=== PATIENT | female | born 1940 | race Caucasian/White ===

== ENCOUNTER 2016-12-18 10:29 | Inpatient (IN) | payer OTHER, MEDICARE ==
[~2016-12-18] VITALS: Ht 162.6 cm; Wt 76.9 kg
[~2016-12-18 10:29] MED LIST: ACETAMINOPHEN/O1 TA3 PO; AMB5 PO; AMBIEN10 MG PO; BACO TOP; BACTROBAN21; CLEOCIN HCL300 MG PO; CLONAZEPAM1 MG PO; COL100 PO; COLACE100 MG PO; CYMBALTA30 M1 PO; DILAUDID2 MG PO; ECO81 PO; FERROUS SULFAT325 M2 PO; FLEXERIL10 MG PO; GABAPENTIN100 M2 PO; GLU5 PO; GLU500 PO; GOOD SENSE ASPI81 M3 PO; HIBICLENS118 ML TOP; HIBICLENS118 ML TP; KLONOPIN1 MG PO; LAC PO; LEVAQUIN750 MG PO; MAC100 PO; METFORMIN HCL1000 MG PO; METFORMIN HCL500 MG PO; MORPHINE SULFAT30 M2 PO; NEU100 PO; NEURONTIN600 MG PO; PRI20 PO; PYRIDOXINE HCL50 MG PO; RXMED PO; THERAGRAN-M1 TA4 PO; ZES10 PO; ZOC10 PO; ZOF4 PO
--- NOTE | 2016-12-18 12:32 | NUR ---
PT BIB [facility] FOR C/O BACK PAIN. PT ACCOMPANIED BY DAUGHTER AND REPORTS PT FELL X2 RECENTLY ON 12/11 AND 12/13. PT REPORTS FALLING ONTO BUTTOCKS BOTH TIMES, DENIES HITTING HEAD, DENIES ANY LOC. PT IS AAOX4, RESP EVEN AND UNLABORED, REPORTING 9/10 PAIN. PT STS THAT HER DILAUDID IS NOT WORKING FOR HER CHRONIC PAIN
--- NOTE | 2016-12-18 12:34 | NUR ---
DR TELLES AT BEDSIDE FOR MSE
--- NOTE | 2016-12-18 12:51 | NUR ---
TRIAGE ASSISTANT AT BEDSIDE FOR BLOOD DRAW AND CULTURES
--- NOTE | 2016-12-18 13:00 | NUR ---
EKG IN PROGRESS
[2016-12-18 13:10] LABS: BASOPHIL % 0.4 % (0-2); PLATELET COUNT 259 x10^3mcL (130-400)
[2016-12-18 13:12] LABS: RED CELL DISTRIBUTION WIDTH 15.5 % (11.5-14.5)
[2016-12-18 13:17] LABS: CALCIUM 9.1 mg/dL (8.5-10.1); CARBON DIOXIDE 33.3 mmol/L (21-32); CHLORIDE SERUM 102 mmol/L (98-107); GLUCOSE SERUM 148 mg/dL (74-106); POTASSIUM SERUM 4.1 mmol/L (3.5-5.1); SODIUM SERUM 142 mmol/L (136-145)
[2016-12-18 13:22] LABS: ALKALINE PHOSPHATASE 95 U/L (46-116); ALT/SGPT 20 U/L (14-59); AST/SGOT 16 U/L (15-37); BILIRUBIN TOTAL 0.4 mg/dL (0.20-1.00); TOTAL PROTEIN, SERUM 7.7 g/dL (6.4-8.2)
[2016-12-18 13:24] LABS: ALBUMIN 3.2 g/dL (3.4-5.0)
--- NOTE | 2016-12-18 14:40 | NUR ---
PT REQUESTING GRAMAJO CATH. DR KOKI GILL. INSERTED BY LACEY ESCAMILLA WITH STERILE TECHNIQUE. URINE SPECIMEN COLLECTED AND SENT TO LAB
[2016-12-18] MEDS ORDERED: BACLOFEN10 MG PO (14:54)
[2016-12-18] MEDS ORDERED: DILAUDID4 MG PO (14:54)
[2016-12-18] MEDS ORDERED: METFORMIN HCL1000 MG PO (14:55)
[2016-12-18] MEDS ORDERED: DIGOXIN0.125 M1 PO (14:55)
[2016-12-18] MEDS ORDERED: COUMADIN5 MG PO (14:55)
--- NOTE | 2016-12-18 14:55 | NUR ---
MED REC UPDATED WITH PT RX BOTTLES
--- NOTE | 2016-12-18 15:24 | NUR ---
MED STUDENT SAI AT BEDSIDE SPEAKING WITH PT
[2016-12-18 15:27] LABS: UA SPECIFIC GRAVITY <=1.005 (1.005-1.035); microscopic required? YES; urine erythrocyte TRACE (NEGATIVE)
--- NOTE | 2016-12-18 15:36 | NUR ---
REPORT GIVEN TO RAH BURROWS RN FOR ANGELLA ESCAMILLA IN [facility] FOR CONTINUITY OF CARE. 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
[2016-12-18 16:33] LABS: CHOLESTEROL/HDL RATIO 4.9
[2016-12-18 16:42] LABS: T3 TOTAL 1.09 ng/mL
[2016-12-18 16:49] LABS: FREE T4 1.26 ng/dL (0.76-1.46); FREE THYROXINE INDEX 2.8 ug/dL (1.4-4.5); T4(THYROXINE) 8.6 ug/dL (4.7-13.3)
[2016-12-18 17:17] VITALS: BP 148/78
--- NOTE | 2016-12-18 17:29 | NUR ---
REC'D AOX4, SPEECH CLEAR. C/O LEG AND BACK PAIN. ATTACHED TELE 17 SHOWING AFIB. DENIES CHEST PAIN. ON 2L VIA NC, NO SOB NOTED. DAUGHTER AT THE BEDSIDE. PT AMBULATES WITH WALKER AND W/C AT HOME. PT STATES LEFT DENTURES AT HOME. IV SITE WNL. ORIENTED PT AND DAUGHTER TO ROOM AND SURROUNDINGS. CALL LIGHT WITHIN REACH, PROVIDED REPORT TO ANGELLA ESCAMILLA
--- NOTE | 2016-12-18 18:00 | NUR ---
INFORMED ABOUT DIG LEVEL 0.50.HE SAID HE WILL DIGOXIN PO.ALSO INFORMED HIM PT IS VERY ANXIOUS AND SHE DOESNOT WANT ATIVAN.HE SAID HE WILL TALK TO THE PT AND FAMILY.
--- NOTE | 2016-12-18 19:00 | NUR ---
PT IS STABLE,LYING IN THE BED.PT SAID DILAUID HELPED HER WITH PAIN. GAVE REPORT TO NEXT SHIFT NURSE.
--- NOTE | 2016-12-18 19:50 | NUR ---
RECEIVED Pt AAOX4 VERY ANXIOUS, TEARFUL AND DEMANDING ALL HER PAIN AND ANXIETY MEDICATIONS NASREEN. DAUGHTER YURIY IS AT BEDSIDE. DENIES ANY CHEST PAIN. TELE MONITOR READS A-FIB HR 84, B/P 141/69. PULSE OX IS 96% ON ROOM AIR. ACTIVE BOWEL SOUNDS X4 QUADS. DENIES ANY ABD DISCOMFORT. ECCHYMOSIS NOTED TO MARTINA/STEAM CONDITIONER OPERATOR. IV SITE TO LAC IS PATENT. GRAMAJO CATH IN PLACE. RADIAL AND PEDAL PULSES PRESENT. C/O RIGHT KNEE PAIN AT 4/10, K-PAD APPLIED TO KNEE ORDERED. RE-ORIENTED TO ROOM, CALL LIGHT SYSTEM AND POC. WILL CONTINUE TO MONITOR.
--- NOTE | 2016-12-19 02:58 | NUR ---
Pt RESTING QUIETLY. CALL LIGHT WITHIN REACH. WILL CONTINUE TO MONITOR.
[2016-12-19 05:06] VITALS: BP 152/68
--- NOTE | 2016-12-19 05:11 | NUR ---
Pt C/O SHARP PAIN TO LOWER BACK AND KNEES AT 10/10, Pt MEDICATED WITH DILAUDID IV, REQUESTING GABAPENTIN, MADE AWARE IT IS NOT DUE YEAT. CLONOPIN PO GIVEN WELL FOR ANXIETY. WILL CONTINUE TO MONITOR.
--- NOTE | 2016-12-19 05:13 | NUR ---
Pt REMAIN QUIET DURING THE NIGHT AFTER BEING MEDICATED FOR PAIN AND ANXIETY. GRAMAJO CATH PATENT WITH 2000 ML OF URINE, NO BM. Pt CURRENTLY AWAKE C/O PAIN TO LOWER BACK AND KNEES. SAFETY AND COMFORT MEASURES REMAIN IN PLACE. WILL CONTINUE TO MONITOR.
[2016-12-19 06:07] LABS: PLATELET COUNT 270 x10^3mcL (130-400)
[2016-12-19 06:27] LABS: CALCIUM 8.8 mg/dL (8.5-10.1); CARBON DIOXIDE 28.7 mmol/L (21-32); CHLORIDE SERUM 109 mmol/L (98-107); CREATININE SERUM 0.8 mg/dL (0.6-1.0); GLUCOSE SERUM 133 mg/dL (74-106); MAGNESIUM 2.4 mg/dL (1.8-2.4); PHOSPHOROUS 3.4 mg/dL (2.5-4.9); POTASSIUM SERUM 4.2 mmol/L (3.5-5.1); SODIUM SERUM 146 mmol/L (136-145)
[2016-12-19 06:36] LABS: RED CELL DISTRIBUTION WIDTH 14.6 % (11.5-14.5)
--- NOTE | 2016-12-19 07:15 | NUR ---
RECEIVED PT. IN BED A/A/O X3. NO SOB, NO N/V NOTED. C/O CONSTANT PAIN AT BACK AND BLE. NS RUNNING AT 50 CC/HR. VIA IV H/L AT L AC. F/C DRAINING YELLOW URINE. SCD TO BLE MAINTAINED. PT. IS ON CONTACT ISOLATION FOR HX. 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 BED IN LOW POS., CALL LIGHT WITHIN REACH. SIDE RAILS UP X3. K-PAD TO BACK AREA MAINTAINED.
--- NOTE | 2016-12-19 08:00 | NUR ---
DR. GREEN, THE RESIDENTS, CHARGE NURSE, AND ATTENDING NURSE AT BEDSIDE. CAREPLAN DISCUSSED WITH PT. ALL QUESTIONS ANSWERED.
[2016-12-19 09:17] VITALS: BP 143/81
--- NOTE | 2016-12-19 10:22 | NUR ---
ECHO PENDING PT UNABLE TO LYE ON LT SIDE OR BACK AT THIS TIME DUE TO SEVERE PAIN.
[2016-12-19 13:49] VITALS: BP 139/79
--- NOTE | 2016-12-19 13:51 | NUR ---
P.T. NOTES PATIENT CLEARED PER RN FOR PT EVAL. CONTACT ISOLATION PRECAUTIONS OBSERVED. Pt LIVES IN APARTMENT, ONE LEVEL, WITH ADULT DAUGHTER WHO ASSISTS HER WITH ADLs. Pt AMBU W/FWW, ADMITS TO H/O RECENT FALLS X 2 IN LAST FEW WEEKS. PLEASE SEE IMAGING RESULTS AND EXTENSIVE MED Hx. S: Pt PRESENTS AWAKE, ALERT AND AGREEABLE FOR PT EVAL. NOTED 4/10 LBP DESPITE PAIN MEDS PROVIDED PER RN. DAUGHTER IN ROOM. O: PLEASE SEE EVAL FOR DETAILS. Pt REQUIRES MIN A FOR BED MOB AND TRANSFERS AND MIN/MOD A FOR GT WITH FWW FOR 35 FT IN ROOM. ASSIST NEEDED W/SAFE DIRECTIONAL CHANGES AND NEGOTIATING OBSTACLES IN ROOM. Pt EDU ON SAFETY, PROPER POSITIONING AND POSTURAL EDU FOR SPINAL ALIGNMENT W/GOOD LEARNING EXPRESSED. Pt W/FAIR AFFECT AND GETS TEARFUL AT TIME WHEN TALKING. Pt SAFELY ASSISTED BTB WITH ALL LINES INTACT, CALL LIGHT AND TRAY IN REACH, HOB ELEVATED, CALL LIGHT AND TRAY IN REACH. Pt AND DAUGHTER COOPERATIVE AND APPRECIATIVE OF PT CARE. VS: BP 140/69, HR 93BPM, SP02 97% ON RA. A: Pt TOLERATED PT WELL. FALL RISK D/T DECLINE IN FUNCTION AND GENERALIZED LE WEAKNESS. R GENU RECURVATUM W/FIXED KNEE JOINT IN EXTENSION. DEMO'S IMPAIRED BALANCE, SLOW DEN, LIMITED ENDURANCE WITH GT. PATIENT WILL BENEFIT FROM PT DURING ACUTE AND POST ACUTE STAY, HHPT VS SNF. P: POC REVIEWED WITH BULB PACKER. PLEASE SEE PATIENT ONCE DAILY, 5X/WK,1 WEEK. EVAL 45' (2) PVE FOR SECOND PERSON SBA, SAFETY [id number] [id number]; [id number]; TUG 14 SEC Pt PROVIDED W/TRANSFER TRAINING ACTIVITIES, SUP<>SIT AND SIT<>STAND W/FWW USE. ALSO EDU ON LOG ROLL W/GOOD RETURN. TA 10' [phone]
--- NOTE | 2016-12-19 15:36 | NUR ---
CALLED AND REPORTED MRSA SCREENING RESULT (POSITIVE FOR MRSA NARES) TO DR. WEISS (DO PATENTED HOGSHEAD ASSEMBLER). ORDERS FOR HIBICLENS AND BACTROBAN RECEIVED. CONTACT ISOLATION MAINTAINED.
--- NOTE | 2016-12-19 16:44 | NUR ---
C/O FEELING ANXIOUS; KLONOPIN 1MG PO GIVEN.
--- NOTE | 2016-12-19 17:46 | NUR ---
REMAINS IN STABLE CONDITION AT THIS TIME. NO ACUTE DISTRESS NOTED.
[2016-12-19 17:58] VITALS: BP 103/76
--- NOTE | 2016-12-19 19:30 | NUR ---
PATIENT RECEIVED AWAKE, ALERT, AND ORIENTED X 4. NO DISTRESS NOTED. PATIENT C/O BACK AND BLE PAIN 6/10 TOLERABLE AT THIS TIME. IV SITE TO LEFT AC, PATENT AND INTACT. IV FLUID INFUSING PER DOCTOR'S ORDER. BED IN LOWEST POSITION. KPAD IN PLACE. CALL LIGHT WITHIN REACH. WILL CONTINUE TO MONITOR.
[2016-12-19 22:44] VITALS: BP 122/73
--- NOTE | 2016-12-20 05:02 | NUR ---
PATIENT RESTED THROUGHOUT THE NIGHT. MEDICATED FOR BACK/BLE PAIN WITH DILAUDID IVP X 1 PER DOCTOR'S PRN ORDER. PAIN MANAGED THROUGHOUT THE NIGHT. ALL NEEDS MET. SAFETY AND COMFORT MEASURES MAINTAINED. BED IN LOWEST POSITION. CALL LIGHT WITHIN REACH. WILL CONTINUE TO MONITOR AND ENDORSE TO NEXT SHIFT NURSE.
[2016-12-20 05:43] VITALS: BP 137/73
[2016-12-20 06:05] LABS: BASOPHIL % 0.2 % (0-2); PLATELET COUNT 243 x10^3mcL (130-400)
[2016-12-20 06:24] LABS: CALCIUM 8.3 mg/dL (8.5-10.1); CARBON DIOXIDE 25.5 mmol/L (21-32); CHLORIDE SERUM 109 mmol/L (98-107); CREATININE SERUM 0.9 mg/dL (0.6-1.0); GLUCOSE SERUM 159 mg/dL (74-106); PHOSPHOROUS 2.2 mg/dL (2.5-4.9); POTASSIUM SERUM 3.8 mmol/L (3.5-5.1); SODIUM SERUM 145 mmol/L (136-145)
[2016-12-20 06:51] LABS: RED CELL DISTRIBUTION WIDTH 15.7 % (11.5-14.5)
--- NOTE | 2016-12-20 07:05 | NUR ---
RECIVED REPORT FROM CIRILO ESCAMILLA AT BEDSIDE. PT IS AOX4 ABLE TO FOLLOW VERBAL COMMANDS. FOUND ON RA NO SIGNS OF SOB OR ACUTE DISTRESS. NS INFUSING 50 NL/HR TO LAC. IV SITE WNL. CONTACT ISOLATION PRECAUTION IS IMPLEMENTED. PT IS CALM AT THIS TIME. BED AT LOW AND CALL LIGHT WITHIN REACH.
--- NOTE | 2016-12-20 08:18 | NUR ---
PT C/O HIP PAIN 06/08, WILL MEDICATE PER EMAR.
--- NOTE | 2016-12-20 08:20 | NUR ---
ATTENDING DR. MACK IS AT BEDSIDE TO DISCUSS PLAN OF CARE FOR THE DAY.
--- NOTE | 2016-12-20 08:25 | NUR ---
DR. WEISS IS AWARE OF WBC 14.2, DIGOXIN 0.5 AND PHOS 2.2. AWAITING FOR NEW ORDERS.
[2016-12-20 09:12] VITALS: BP 140/75
--- NOTE | 2016-12-20 10:05 | NUR ---
PT C/O LOWER BACK PAIN 06/08, WILL MEDICATE PER EMAR.
--- NOTE | 2016-12-20 10:07 | NUR ---
DR. WEISS IS MADE AWARE OF E.COLI AND MDRO IN URINE. AWAITING FOR NEW ORDERS.
--- NOTE | 2016-12-20 15:11 | NUR ---
PT NOTES TIME [id number] S: CLEARED BY RN FOR P.T. TX. PATIENT IS AWAKE & ALERT IN A SEMI ONTIVEROS POSITION IN BED. AGREEABLE TO P.T. TX. C/O LOW BACK & L KNEE PAIN 04/07. PATIENT HAS BEEN MEDICATED FOR PAIN BY RN PRIOR TO TX. O: VITALS AT REST BP 125/76, HR 86 BPM, SPO2 ON RA 98% BED MOBILITY: SUPINE<>SIT W/ MIN ASSIST. SCOOTING TO EOB W/ CGA. PATIENT IS SLOW IN TASK FACILITATION. PATIENT USES BED RAILINGS TO ASSIST W/ BED MOBILITY. WHILE SEATED AT EOB PATIENT INITIALLY RETROLEANS, BUT W/ VC & USE OF BED RAIL PATIENT ABLE TO CORRECT SITTING BALANCE. TRANSFER: SIT<>STAND W/ FWW MIN/MOD ASSIST. PATIENT TENDS TO PULL FROM FWW TO STAND & REQUIRES ASSISTANCE W/ BILAT HANDS TO REACH FOR ARM REST. VC/TC GIVEN W/ PROPER HAND PLACEMENT FOR SIT<>STAND TRANSFER. GAIT: 20FT X 3 FT W/ FWW MIN ASSIST. PATIENT HAS R KNEE FUSED IN EXTENSION. ANTALGIC GAIT. SHORTENED STEP/STRIDE LENGTH. EASILY FATIGUES. REQUIRES STANDING REST PERIOD. GAIT DISTANCE LIMITED DUE TO WEAKNESS. PATIENT STATES, "ARTHRITIC KNEE." PATIENT HAS A KYPHOTIC POSTURE W/ DECREASE HEEL STRIKE ON L LE. PATIENT REQUIRES CUES W/ IMPROVING POSTURAL ALIGNMENT. EDUCATED PATIENT ON SAFETY FOR FALL PREVENTION & USE OF CALL BUTTON FOR NSG ASSISTANCE W/ GOOD UNDERSTANDING. COOPERATIVE & APPRECIATIVE OF CARE. PATIENT IS SAFELY & COMFORTABLY IN A SEMI ONTIVEROS POSITION IN BED W/ CALL BUTTON & TABLE IN REACH. RN NOTIFIED. P: DISCUSSED W/ PRIMARY PHYSICAL THERAPIST [id number]',[id number]', PVE (CHANGED GOWN)
--- NOTE | 2016-12-20 17:59 | NUR ---
[facility]. ORDER FOR HOT FOOD IS ORDERED. CONFIRMED WITH DIETARY AND TRAY WILL BE UP SOON. AWAITING FOR NEW FOOD TRAY.
[2016-12-20 18:43] VITALS: BP 137/68
--- NOTE | 2016-12-20 19:10 | NUR ---
ENDORSED ALL CARE TO CIRILO ESCAMILLA. PT RESTING IN BED AT THIS TIME. NO SIGNS OF ACUTE DISTRESS OR SOB NOTED. EVEN CHEST RISE. PT DENIES ANY PAIN AT THIS TIME. NS INFUSING AT 50 ML/HR TO RAC. IV SITE WNL. BED AT LOW AND CALL LIGHT WITHIN REACH.
--- NOTE | 2016-12-20 19:30 | NUR ---
PATIENT RECEIVED RESTING COMFORTABLY WITH EYES CLOSED. DAUGHTER AT BEDSIDE. NO DISTRESS NOTED. NO C/O PAIN AT THIS TIME. IV SITE TO LEFT AC, PATENT AND INTACT. IV FLUID INFUSING PER DOCTOR'S ORDER. BED IN LOWEST POSITION. CALL LIGHT WITHIN REACH. WILL CONTINUE TO MONITOR.
[2016-12-20 22:02] VITALS: BP 111/66
--- NOTE | 2016-12-21 05:15 | NUR ---
PATIENT RESTED THROUGHOUT THE NIGHT. NO DISTRESS NOTED. MEDICATED FOR LEG PAIN WITH DILAUDID PO X 1 PER DOCTOR'S PRN ORDER. PAIN MANAGED THROUGHOUT THE NIGHT. ALL NEEDS MET. SAFETY AND COMFORT MEASURES MAINTAINED. BED IN LOWEST POSITION. CALL LIGHT WITHIN REACH. WILL CONTINUE TO MONITOR AND ENDORSE TO THE NEXT SHIFT NURSE.
[2016-12-21 05:46] VITALS: BP 140/70
[2016-12-21 06:25] LABS: BASOPHIL % 0.3 % (0-2); PLATELET COUNT 208 x10^3mcL (130-400)
[2016-12-21 06:36] LABS: CALCIUM 8.6 mg/dL (8.5-10.1); CARBON DIOXIDE 28.3 mmol/L (21-32); CHLORIDE SERUM 110 mmol/L (98-107); CREATININE SERUM 0.9 mg/dL (0.6-1.0); GLUCOSE SERUM 103 mg/dL (74-106); PHOSPHOROUS 3.6 mg/dL (2.5-4.9); POTASSIUM SERUM 4.5 mmol/L (3.5-5.1); SODIUM SERUM 147 mmol/L (136-145)
--- NOTE | 2016-12-21 07:30 | NUR ---
RECEIVED PATIENT REMAIN ASLEEP BUT AROUSABLE, DENIES PAIN AT THIS TIME, REPOSITIONED UP IN BED, TELEVISION MAINTENANCE WORKER AT BEDSIDE HELPING PATIENT WITH TRAY, PER PATIENT "NOT FEELING GOOD FROM LAST NIGHT". STATE DUE TO MEDICATION GIVEN TO HER. INFORM PATIENT THE MEDICATION IS NOT DISCONTINUE FROM LAST NIGHT. NEEDS ANTICIPATED, CALL LIGHT WITHIN REACH AND BED IN LOW POSITION.
--- NOTE | 2016-12-21 09:00 | NUR ---
PATIENT RESTING IN BED NO COMPLAINTS, ALL DUE MEDS GIVEN, HIBICLENS WASH GIVEN, REPOSITIONED FOR COMFORT, CALL LIGHT WITHIN REACH AND BED LOW IN POSITION.
[2016-12-21 09:01] VITALS: BP 125/58
--- NOTE | 2016-12-21 10:30 | NUR ---
PATIENT LAYING IN BED C/O PAIN TO FEET 06/08, ASKING FOR NEURONTIN INFORM PATIENT IS DUE AT THIS TIME, GIVE DILAUDID 4MG PO FOR PAIN, DAUGHTER WALK IN TO VISIT PATIENT, UPDATED PATIENT'S CONDITION. PATIENT WANT KLONOPIN INFORM PATIENT WILL BE BACK IN 30 MIN TO RE-EVAL SEE IF PAIN MED WORK AND WILL GIVE KLONOPIN. PATIENT VERBALIZE OKAY. CONT TO MONITOR.
--- NOTE | 2016-12-21 11:35 | NUR ---
PATIENT IN BED WITH DAUGHTER AT BEDSIDE, PATIENT APPEAR VERY ANXIOUS KLONOPIN GIVEN FOR ANXIETY, ALL DUE MEDS GIVEN. ALLOW PATIENT QUIET TIME FOR RESTING, CALL LIGHT WITHIN REACH AND BED IN LOW POSITION.
--- NOTE | 2016-12-21 12:07 | NUR ---
Nadira( dtr) request RN not to give patient more Dilaudid state med make patient more anxious, but patient still want to take it, inform dtr will have to discuss with MD.
--- NOTE | 2016-12-21 13:50 | NUR ---
TOOK MEDS WITHOUT DIFFICULTY.
[2016-12-21 13:58] VITALS: BP 124/74
--- NOTE | 2016-12-21 17:13 | NUR ---
PATIENT AWAKE AND ALERT IN BED C/O IV SITE HURTING ASSESS IV NOTED LEAKING, IV DC'D AND INTACT, ALL DUE MEDS GIVEN, BS 185 GIVE 3 UNITS OF REGULAR INSULIN SQ WITH CRACKERS, CALL LIGHT WITHIN REACH, WILL INSERT IV LATER.
[2016-12-21 17:19] VITALS: BP 120/69
--- NOTE | 2016-12-21 18:41 | NUR ---
Patient finish eating dinner, ate 80%, no complaints. IV inserted to R wrist # 20 with attempt x1 patient tolerated well. Ice water offered per request, call light within reach.
[2016-12-21 19:55] VITALS: BP 120/67
--- NOTE | 2016-12-21 19:55 | NUR ---
PT RESTING IN BED WITH EYES CLOSED. EASILY AROUSED WHEN NAME CALLED. APPEARS SLIGHTLY DROWSY, BUT NO S/S OF RESPIRATORY DISTRESS NOTED. DENIES ANY SOB. LUNGS DIMINISHED. BOWEL SOUNDS ACTIVE. ABD SOFT AND ROUND. NO S/S OF PAIN. NO GRIMACING NOTED. NO EDEMA NOTED. PULSES PALPABLE. BLE ELEVATED ON PILLOW FOR COMFORT. SIDE RAILS UP. CALL LIGHT WITHIN REACH.
[2016-12-21 21:16] VITALS: BP 120/67
--- NOTE | 2016-12-22 00:10 | NUR ---
PT C/O PAIN TO BACK AND BLE. PRN DILAUDID 4 MG PO GIVEN. NO S/S OF RESPIRATORY DISTRESS NOTED. IV INFUSING WELL. CALL LIGHT WITHIN REACH. WILL CONTINUE TO MONITOR.
--- NOTE | 2016-12-22 02:25 | NUR ---
PT RESTING IN BED WITH EYES CLOSED. NO S/S OF PAIN. NO FACIAL GRIMACING NOTED. BREATHING EQUAL AND UNLABORED. NO S/S OF DISTRESS OR DISCOMFORT NOTED. CALL LIGHT WITHIN REACH. WILL CONTINUE TO MONITOR.
--- NOTE | 2016-12-22 05:29 | NUR ---
PT RESTING IN BED. ALERT AND AWAKE. NO S/S OF DISTRESS OR DISCOMFORT NOTED. BREATHING EQUAL AND UNLABORED. IV INFUSING WELL. RESTING COMFORTABLY WITH RELAXED FACIAL FEATURES. WILL CONTINUE TO MONITOR.
[2016-12-22 05:49] LABS: BASOPHIL % 0.3 % (0-2); PLATELET COUNT 227 x10^3mcL (130-400)
[2016-12-22 05:54] LABS: RED CELL DISTRIBUTION WIDTH 16.5 % (11.5-14.5)
[2016-12-22 05:59] VITALS: BP 126/70
[2016-12-22 06:06] LABS: CALCIUM 8.9 mg/dL (8.5-10.1); CARBON DIOXIDE 26.5 mmol/L (21-32); CHLORIDE SERUM 110 mmol/L (98-107); CREATININE SERUM 0.9 mg/dL (0.6-1.0); GLUCOSE SERUM 128 mg/dL (74-106); MAGNESIUM 1.9 mg/dL (1.8-2.4); PHOSPHOROUS 3.9 mg/dL (2.5-4.9); POTASSIUM SERUM 4.2 mmol/L (3.5-5.1); SODIUM SERUM 146 mmol/L (136-145)
--- NOTE | 2016-12-22 07:30 | NUR ---
RECEIVED PATIENT AWAKE AND ALERT IN BED NO DISTRESS NOTED, C/O FEET PAIN 9/10, "LIKE ELECTRIC SHOOTING DOWN". REPOSITION AND BLE ELEVATED ON PILLOW. IV INTACT AND PATENT, INFORM PATIENT WILL BE BACK WITH PAIN MED, CALL LIGHT WITHIN REACH.
--- NOTE | 2016-12-22 09:00 | NUR ---
PATIENT RESTING IN BED REPOSITION UP IN BED, ALL DUE MEDS GIVEN, STATE PAIN TO FEET RELIEF A LITTLE BIT, 05/08. KLONOPIN 1 MG PO GIVEN PER PATIENT REQUEST STATE KLONOPIN WILL HELP WITH THE PAIN. WASH PATIENT WITH HIBICLENS AND APPLY BACTROBAN TO NASAL ASO ORDERED, HARNESS AND BAG INSPECTOR AT BEDSIDE ASSISTING AND REPOSITION. CALL LIGHT WITHIN REACH.
[2016-12-22 10:05] VITALS: BP 118/55
--- NOTE | 2016-12-22 10:35 | NUR ---
Patient resting in bed calm, dtr Bobbi come in to visit patient, SS in room to talk to patient and dtr at this time.
[2016-12-22] MEDS ORDERED: MAC100 PO (10:57)
[2016-12-22] MEDS ORDERED: BACO TOP (10:57)
[2016-12-22] MEDS ORDERED: LAC PO (10:58)
[2016-12-22] MEDS ORDERED: HIBICLENS118 ML TOP (10:58)
[2016-12-22] MEDS ORDERED: VOL50 PO (10:59)
[2016-12-22] MEDS ORDERED: TOP50 PO (10:59)
[2016-12-22] MEDS ORDERED: MEDDP PO (11:02)
--- NOTE | 2016-12-22 11:59 | NUR ---
PATIENT " UPSET AND CRYING ABOUT DTR NOT WANTING HER HOME AND WANT HER TO GO REHAB". ACKNOWLEDGE PATIENT FEELS AND PROVIDE EMOTIONAL SUPPORT. ALL DUE MED GIVEN. NEEDS ANTICIPATED. CALL LIGHT WITHIN REACH.
[2016-12-22 12:46] VITALS: BP 118/55
--- NOTE | 2016-12-22 12:56 | NUR ---
DR PAINTER AND PRODUCT MGR REX IN ROOM WITH PATIENT FOR OVER 45 MINUTES TO DISCUSS PLAN OF DISCHARGE.
[2016-12-22 13:56] VITALS: BP 135/74
--- NOTE | 2016-12-22 14:44 | NUR ---
PATIENT AWAKEN INFORM PATIENT WILL DO BLADDER TRAINING, PATIENT VERBALIZE UNDERSTAND. GRAMAJO CLAMPED WILL BE BACK TO ASSESS LATER, DILAUDID 4MG PO GIVEN FOR 6/10 FEET PAIN, DUE MEDS GIVEN. CONT TO MONITOR. CALL LIGHT WITHIN REACH.
--- NOTE | 2016-12-22 15:17 | NUR ---
EARLIER RECEIVED CALL FROM ANNE GOODMAN, WHO INFORMED THIS RN THAT DAUGHTER WOULD BE TRANSPORTING PATIENT TO [facility] BETWEEN 3-4PM TODAY. PER REX, [facility] IS AWARE AND WILL HAVE WHEELCHAIR TO ASSIST DAUGHTER GETTING PATIENT FROM CAR [facility].
--- NOTE | 2016-12-22 15:28 | NUR ---
CALL TO GEOVANNY @ [phone] RM 220A, GIVE REPORT TO NURSE DECEMBER. UPDATED NEW MEDICATIONS PER REQUEST.
--- NOTE | 2016-12-22 16:49 | NUR ---
Patient in bed no complaint, bennett dc'd, IV dc'd and bandaid applied, give discharge instruction to patient and dtr Bobbi at bedside, no prescription, all belongings with dtr. RN and PASTA PRESS OPERATOR assisting patient get dress. Assisting patient to bathroom patient ambulate with walker, voided w/o problem. Patient wheel out by PASTA PRESS OPERATOR.
== END 2016-12-22 16:40 | DRG 551 ==
LOC: ED 10:29 → DU 15:05
PROVIDERS: Emergency Medicine; Family Medicine; ADMIT Family Medicine
DX: M54.9 Dorsalgia, unspecified (principal); N17.0 Acute kidney failure with tubular necrosis; E44.0 Moderate protein-calorie malnutrition; E87.0 Hyperosmolality and hypernatremia; N39.0 Urinary tract infection, site not specified; I48.2 Chronic atrial fibrillation; E11.65 Type 2 diabetes mellitus with hyperglycemia; E11.51 Type 2 diabetes mellitus with diabetic peripheral angiopathy without gangrene; E78.5 Hyperlipidemia, unspecified; B96.20 Unspecified Escherichia coli [E. coli] as the cause of diseases classified elsewhere; M25.561 Pain in right knee; Z91.81 History of falling; I07.1 Rheumatic tricuspid insufficiency; D72.829 Elevated white blood cell count, unspecified; T38.0X5A Adverse effect of glucocorticoids and synthetic analogues, initial encounter; Z68.30 Body mass index [BMI] 30.0-30.9, adult; Z79.84 Long term (current) use of oral hypoglycemic drugs; Y92.018 Other place in single-family (private) house as the place of occurrence of the external cause
CPT/HCPCS: 82962; 83880; 84439; 97116-GP; 97530-GP; J0696; J1100; J1170; J2060; J2800; J3010; J7030; J7040; Q0092